=== PATIENT | female | born 1985 ===

== ENCOUNTER 2021-05-26 21:41 | Inpatient (IN) | payer MEDICAID ==
[2021-05-26] MEDS ORDERED: Nalbuphine 10 MG/1 ML Vial IM PRN (22:39)
[2021-05-26] MEDS ORDERED: Misoprostol 50 MCG (1/2 of 100 MCG) Tab VAG PRN (23:06)
[2021-05-27] MEDS ORDERED: Promethazine 25 MG/ML SDV IM PRN ×2 (00:01→20:42)
[2021-05-27] MEDS ORDERED: Naloxone 2 MG/2 ML Syringe IVPUSH PRN (00:01)
[2021-05-27] MEDS ORDERED: Misoprostol 400 MCG (4 X 100 MCG TAB) RECTAL PRN ×2 (00:01→20:41)
[2021-05-27] MEDS ORDERED: Ondansetron 4 MG/2 ML SDV IVPUSH PRN ×2 (00:01)
[2021-05-27] MEDS ORDERED: Lactated Ringers 500 ML IV SCH ×2 (00:01)
[2021-05-27] MEDS ORDERED: ePHEDrine 50 MG/ML SDV IVPUSH PRN (00:01)
[2021-05-27] MEDS ORDERED: Carboprost Tromethamine 250 MCG/1 ML Amp IM PRN ×2 (00:01→20:41)
[2021-05-27] MEDS ORDERED: Lactated Ringers 1,000 ML IV ONE (00:01)
[2021-05-27] MEDS ORDERED: Acetaminophen 325 MG Tab PO PRN ×3 (00:01→20:41)
[2021-05-27] MEDS ORDERED: Lidocaine 1% 30 ML SDV INJECT PRN (00:01)
[2021-05-27] MEDS ORDERED: Sodium Chloride 0.9% 10 ML Syringe FLUSH SCH (00:01)
[2021-05-27] MEDS ORDERED: Tranexamic Acid 1,000 MG in Sodium Chloride 0.9% 100 ML IV PRN ×2 (00:01→20:41)
[2021-05-27] MEDS ORDERED: Methylergonovine 0.2 MG/1 ML Amp IM PRN (00:01)
[2021-05-27] MEDS ORDERED: Oxytocin/Normal Saline 30 UNIT/500 ML BAG IV SCH ×2 (00:01)
[2021-05-27] MEDS: Misoprostol 25 MCG (1/4 of 100 MCG) Tab VAG PRN ×2 (01:38→05:20)
[2021-05-27 02:18] LABS: AMPHETAMINES,URINE NEGATIVE (NEGATIVE); BARBITURATES,URINE NEGATIVE (NEGATIVE); BENZODIAZEPINE,URINE NEGATIVE (NEGATIVE); MDMA (ECSTASY), URINE NEGATIVE (NEGATIVE); METHADONE,URINE NEGATIVE (NEGATIVE); METHAMPHETAMINES,URINE NEGATIVE (NEGATIVE); OPIATES,URINE NEGATIVE (NEGATIVE); OXYCODONE,URINE NEGATIVE (NEGATIVE); PHENCYCLIDINE,URINE NEGATIVE (NEGATIVE); TCA,URINE NEGATIVE (NEGATIVE)
[2021-05-27] MEDS: Lactated Ringers 1,000 ML IV SCH ×2 (11:30→19:22)
[2021-05-27] MEDS ORDERED: fentaNYL 100 MCG/2 ML SDV ITHECAL ONE (18:50)
[2021-05-27] MEDS ORDERED: Sodium Bicarbonate 4.2% 2.5 MEQ/5 ML SDV ONE ×2 (18:50→18:57)
[2021-05-27] MEDS ORDERED: Sodium Chloride 0.9% 20 ML SDV ONE (18:50)
[2021-05-27] MEDS ORDERED: EPINEPHrine 1 MG/ML SDV ONE ×2 (18:50→18:56)
[2021-05-27] MEDS ORDERED: fentaNYL 100 MCG/2 ML SDV ONE (18:56)
[2021-05-27] MEDS ORDERED: ePHEDrine 50 MG/ML SDV ONE (19:30)
[2021-05-27] MEDS ORDERED: Oxytocin 10 Units/1 ML SDV IM PRN (20:41)
[2021-05-27] MEDS ORDERED: Simethicone 80 MG Tab.Chew PO PRN (20:41)
[2021-05-27] MEDS ORDERED: Benzocaine/Menthol 20%-0.5% Spray 78 GM Cannister TOP PRN (20:41)
[2021-05-28] MEDS: Docusate Sodium 100 MG Cap PO PRN (14:04)
[2021-05-28] MEDS: Prenatal Multivitamin with Calcium/Folic Acid/Iron Tab PO SCH (14:04)
[2021-05-28] MEDS: Ibuprofen 800 MG Tab PO PRN ×2 (14:04→21:49)
[2021-05-29] MEDS: Prenatal Multivitamin with Calcium/Folic Acid/Iron Tab PO SCH (10:30)
[2021-05-29] MEDS: Ibuprofen 800 MG Tab PO PRN (10:30)
[2021-05-29] MEDS: Docusate Sodium 100 MG Cap PO PRN (10:30)
== END 2021-05-29 15:25 | disposition home or self-care (01) | DRG 806 ==
LOC: UNDOADMOB 23:49 → DL.OB 23:49 → EEVIPCON 05-27 20:43 → OBSVTOIN 05-27 20:43
PROVIDERS: ADMIT Family Medicine; ATTEND Family Medicine
PROC: 10E0XZZ Delivery of Products of Conception, External Approach (ICD-10-PCS; principal; 2021-05-27)
PROC: 10907ZC Drainage of Amniotic Fluid, Therapeutic from Products of Conception, Via Natural or Artificial Opening (ICD-10-PCS; 2021-05-27)
PROC: 3E0P7VZ Introduction of Hormone into Female Reproductive, Via Natural or Artificial Opening (ICD-10-PCS; 2021-05-27)
PROC: 3E0R3BZ Introduction of Anesthetic Agent into Spinal Canal, Percutaneous Approach (ICD-10-PCS; 2021-05-27)
DX: O99.214 Obesity complicating childbirth (principal); O99.354 Diseases of the nervous system complicating childbirth; Z37.0 Single live birth; Z3A.39 39 weeks gestation of pregnancy; O99.814 Abnormal glucose complicating childbirth; O36.63X0 Maternal care for excessive fetal growth, third trimester, not applicable or unspecified; G56.00 Carpal tunnel syndrome, unspecified upper limb; Z20.822 Contact with and (suspected) exposure to COVID-19; Z28.82 Immunization not carried out because of caregiver refusal
CPT/HCPCS: 36415; 59409; 80305-QW; 85027; A9270-GY; J0171; J2405; J2590; J3010; J7120; U0002